=== PATIENT | female | born 1965 | race Caucasian/White ===

== ENCOUNTER 2018-09-12 21:57 | Emergency (ER) | payer MEDICAID ==
[2018-09-12] MEDS ORDERED: Ketorolac 60 MG/2 ML SDV IM ONE (22:10)
[2018-09-12] MEDS ORDERED: Cyclobenzaprine 10 MG Tab PO ONE (22:11)
--- NOTE | 2018-09-12 22:59 | EDM.PDOC ---
ED HPI GENERAL MEDICAL PROBLEM - General Chief Complaint: General Stated Complaint: back spasm Time Seen by Provider: 09/12/18 22:32 Source of Information: Reports: Patient History Limitations: Reports: No Limitations - History of Present Illness INITIAL COMMENTS - FREE TEXT/NARRATIVE: Patient presents with low back muscle spasms. She is familiar with this and has had it occasionally for years. Usually she can treat at home with NSAIDS, Tylenol, Clonazepam, stretching, hot/cold packs but not this one. She took her last Ibuprofen at 0600 today and has had Tylenol only since then. She had the same thing happen 5 years ago and was here in the ER. They did a CT to rule out kidney stones and treated with Dilaudid, Toradol and Flexeril which worked great she says. 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 - Related Data Allergies Allergy/AdvReac Type Severity Reaction Status Date / Time No Known Drug Allergies Allergy Other Verified 09/12/18 22:00 Home Meds: Home Meds Aspirin [Adult Low Dose Aspirin EC] 81 mg PO DAILY 10/15/13 [History] Pravastatin [Pravachol] 40 mg PO DAILY 10/15/13 [History] Triamterene/Hydrochlorothiazid [Triamterene-HCTZ 37.5-25 MG] 1 tab PO DAILY [History] clonazePAM [Clonazepam] 1 mg PO TID PRN 10/15/13 [History] metFORMIN HCl [Metformin ER Osmotic] 1,000 mg PO DAILY 10/15/13 [History] DULoxetine [Cymbalta] 30 mg PO DAILY 04/12/17 [History] DULoxetine [Cymbalta] 60 mg PO DAILY 04/12/17 [History] SitaGLIPtin [Januvia] 100 mg PO DAILY 04/12/17 [History] Naproxen [Naprosyn] 440 mg PO BID 11/01/17 [History] glipiZIDE [Glucotrol] 10 mg PO BID 11/01/17 [History] Past Medical History HEENT History: Reports: Impaired Vision Genitourinary History: Reports: Pyelonephritis, Renal Calculus 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: Musculoskeletal History: Reports: Other (See Below) Other Musculoskeletal History: Scoliosis, here for Rt Arm pain Psychiatric History: Reports: Anxiety, Depression Endocrine/Metabolic History: Reports: Diabetes, Type II Hematologic History: Reports: Anemia, B12 Deficiency - Past Surgical History HEENT Surgical History: Reports: None Endocrine Surgical History: Reports: None Musculoskeletal Surgical History: Reports: Shoulder Surgery Social & Family History - Family History Family Medical History: Noncontributory - Caffeine Use Caffeine Use: Reports: Soda - Living Situation & Occupation Living situation: Reports: Occupation: Employed ED ROS GENERAL - Review of Systems Review Of Systems: See Below Constitutional: Denies: Fever, Malaise, Weakness HEENT: Denies: Ear Pain, Throat Pain, Vision Change Respiratory: Denies: Shortness of Breath, Cough Cardiovascular: Denies: Chest Pain, Syncope GI/Abdominal: Denies: Abdominal Pain, Diarrhea, Nausea, Vomiting : Denies: Dysuria, Flank Pain Musculoskeletal: Reports: Back Pain. Denies: Neck Pain, Shoulder Pain, Arm Pain , Hand Pain, Leg Pain, Foot Pain Skin: Denies: Cyanosis, Jaundice, Mottled, Pallor, Diaphoresis Neurological: Denies: Confusion, Dizziness, Headache, Seizure, Syncope Psychiatric: Reports: Anxiety (chronic). Denies: Agitation, Confusion ED EXAM, GENERAL - Physical Exam Exam: See Below Exam Limited By: No Limitations General Appearance: Alert, WD/WN, No Apparent Distress Eye Exam: Bilateral Eye: EOMI, Normal Inspection, PERRL Ears: Normal External Exam, Hearing Grossly Normal Nose: Normal Inspection, No Blood Throat/Mouth: Normal Inspection, Normal Lips, Normal Voice, No Airway Compromise Head: Atraumatic, Normocephalic Neck: Normal Inspection, Full Range of Motion Respiratory/Chest: No Respiratory Distress, Lungs Clear, Normal Breath Sounds, No Accessory Muscle Use Cardiovascular: Regular Rate, Rhythm, No Murmur GI/Abdominal: Soft, Non-Tender, No Organomegaly, No Distention Back Exam: Full Range of Motion, Muscle Spasm (lumbar paraspinal muscles), Paraspinal Tenderness. No: CVA Tenderness (L), CVA Tenderness (R) Extremities: Normal Inspection, Normal Range of Motion Neurological: Alert, Oriented, Normal Cognition, No Motor/Sensory Deficits Psychiatric: Normal Affect, Normal Mood Skin Exam: Warm, Dry, Intact, Normal Color, No Rash Course - Vital Signs Last Recorded V/S: Last Vital Signs Temp 97.7 F 09/12/18 22:25 Pulse 72 09/12/18 22:25 Resp 18 09/12/18 22:25 BP 109/62 09/12/18 22:25 Pulse Ox 95 09/12/18 22:25 - Orders/Labs/Meds Meds: Medications Discontinued Medications Generic Name Dose Route Start Last Admin Trade Name Margaret PRN Reason Stop Dose Admin Cyclobenzaprine HCl 10 mg 09/12/18 22:11 09/12/18 22:14 Flexeril PO 09/12/18 22:12 10 mg ONETIME ONE Administration Ketorolac Tromethamine 60 mg 09/12/18 22:10 09/12/18 22:14 Toradol IM 09/12/18 22:11 60 mg ONETIME ONE Administration - Re-Assessments/Exams Free Text/Narrative Re-Assessment/Exam: 09/12/18 22:58 We started treatment with Toradol and Flexeril and will add Dilaudid if she gets someone to drive her home. 09/12/18 23:18 Patient is feeling much better and can get up from stretcher and walk with very little discomfort. She wants to wait until she gets home and use Hydrocodone if needed; no Dilaudid now so she won't have to bother her friend karyna. We discussed findings and treatment plan and she is discharged to home in stable condition. Departure - Departure Time of Disposition: 23:14 Disposition: Home, Self-Care 01 Condition: Good Clinical Impression: Lumbar paraspinal muscle spasm - Discharge Information Instructions: Muscle Cramps and Spasms Additional Instructions: 1. Take the Flexeril and Hydrocodone as directed. 2. Starting tomorrow, you can use Ibuprofen 600 mg three times a day as needed. 3. Continue walking and stretching regularly. 4. Follow up with your PCP if not resolving over next few days.
== END 2018-09-12 23:30 | disposition home or self-care (01) ==
LOC: KA.ED 21:57
DX: M62.830 Muscle spasm of back (principal); E11.9 Type 2 diabetes mellitus without complications; F41.9 Anxiety disorder, unspecified; F32.9 Major depressive disorder, single episode, unspecified; Z79.899 Other long term (current) drug therapy; Z79.82 Long term (current) use of aspirin; Z79.84 Long term (current) use of oral hypoglycemic drugs
CPT/HCPCS: 96372; 99283; A9270-GY; J1885